=== PATIENT | male | born 1980 | race Two or more races ===

== ENCOUNTER 2020-03-05 08:21 | Emergency (ER) | payer SELFPAY ==
[~2020-03-05] VITALS: Ht 185.4 cm; Wt 99.8 kg
[2020-03-05 09:07] VITALS: BP 143/86
[2020-03-05] MEDS ORDERED: LIDOCAINE 1% HCL (LOCAL ANESTH.) INJ 20ML MDV IJ ONE (10:00)
[2020-03-05] MEDS ORDERED: IBUPROFEN 800 MG TAB PO ONE (10:00)
== END 2020-03-05 11:43 | disposition home or self-care (01) ==
LOC: ER 08:21
DX: S01.81XA Laceration without foreign body of other part of head, initial encounter (principal); W21.03XA Struck by baseball, initial encounter; Y93.64 Activity, baseball; Y92.89 Other specified places as the place of occurrence of the external cause; Y99.8 Other external cause status
CPT/HCPCS: 12011; 70450; 99284; J2001